=== PATIENT | male | born 1995 | race Caucasian/White ===

== ENCOUNTER 2017-10-18 16:31 | Emergency (ER) | payer OTHER ==
--- NOTE | 2017-10-18 16:45 | EDM.PDOC ---
ED HPI GENERAL MEDICAL PROBLEM - General Chief Complaint: Lower Extremity Injury/Pain Stated Complaint: left ankle pain Time Seen by Provider: 10/18/17 16:40 Source of Information: Reports: Patient History Limitations: Reports: No Limitations - History of Present Illness INITIAL COMMENTS - FREE TEXT/NARRATIVE: Patient presents to ER with complaints of left ankle pain. States was holding on to a calf to ear tag it and stepped back and twisted his ankle. States heard a large popping sensation and went to his knees. Unable to bear weight due to pain. Onset: Today, Sudden Duration: Minutes: Location: Reports: Lower Extremity, Left Quality: Reports: Sharp, Throbbing Severity: Moderate Worsens with: Reports: Movement Associated Symptoms: Reports: No Other Symptoms Left Ankle Pain Score (Numeric/FACES): 6 - Related Data Allergies Allergy/AdvReac Type Severity Reaction Status Date / Time No Known Allergies Allergy Verified 10/18/17 16:54 Home Meds: Home Meds . [No Known Home Meds] 03/30/16 [History] Past Medical History - Past Surgical History Musculoskeletal Surgical History: Reports: Shoulder Surgery Social & Family History - Tobacco Use Smoking Status *Q: Never Smoker - Caffeine Use Caffeine Use: Reports: None - Recreational Drug Use Recreational Drug Use: No Review of Systems - Review of Systems Review Of Systems: See Below Musculoskeletal: Reports: Leg Pain, Joint Pain Skin: Reports: No Symptoms ED EXAM, GENERAL - Physical Exam Exam: See Below Exam Limited By: No Limitations General Appearance: Alert, WD/WN, Mild Distress Extremities: Joint Swelling, Leg Pain, Limited Range of Motion, Other (boot cut off of left leg. Has moderate amount of swelling to lateral malleolar region. Tender to palpation.) Course - Vital Signs Last Recorded V/S: Last Vital Signs Temp 96.6 F 10/18/17 16:43 Pulse 64 10/18/17 16:43 Resp 18 10/18/17 16:43 BP 143/65 H 10/18/17 16:43 Pulse Ox 99 10/18/17 16:43 - Orders/Labs/Meds Orders: Active Orders 24 hr Category Date Time Status Ankle Min 3V Lt [CR] Stat Exams 10/18/17 16:39 Taken Foot 2V Lt [CR] Stat Exams 10/18/17 16:39 Taken - Re-Assessments/Exams Free Text/Narrative Re-Assessment/Exam: 10/18/17 17:15 Xrays reviewed. Distal fibular fracture noted. Minimally displaced. Tall cam boot placed on per this provider. Stressed importance of no weight bearing, elevation, ice and ibuprofen. Patient declines needing anything for pain. Departure - Departure Time of Disposition: 17:16 Disposition: Home, Self-Care 01 Condition: Fair Clinical Impression: Fracture of fibula - Discharge Information Forms: ED Department Discharge Additional Instructions: 1. Rest 2. Elevate 3. Ice frequently tonight 4. Ibuprofen for pain and swelling 5. Return in one week for xray to check stability of fracture 6. No weight bearing, crutches 7. Call with any questions - My Orders Last 24 Hours: My Active Orders 10/18/17 16:39 Ankle Min 3V Lt [CR] Stat Foot 2V Lt [CR] Stat - Assessment/Plan Last 24 Hours: My Active Orders 10/18/17 16:39 Ankle Min 3V Lt [CR] Stat Foot 2V Lt [CR] Stat
[2017-10-18 16:53] VITALS: BP 143/65
== END 2017-10-18 17:35 | disposition home or self-care (01) ==
LOC: CC.ED 16:31
DX: S82.832A Other fracture of upper and lower end of left fibula, initial encounter for closed fracture (principal); X50.1XXA Overexertion from prolonged static or awkward postures, initial encounter
CPT/HCPCS: 73610-LT; 73620-LT; 99283